=== PATIENT | male | born 1940 | race Asian ===

== ENCOUNTER 2022-07-07 16:28 | Emergency (ER) | payer OTHER, MEDICARE ==
--- NOTE | 2022-07-07 17:24 | ER ---
Nurse's Notes [facility] Name: Silvano South Age: 82 yrs Sex: Male : 1940 Arrival Date: 07/07/2022 Time: 16:32 Bed 23 [facility] MD: Diagnosis: Left hip strain Presentation: 07/07 16:52 Chief complaint: Patient states: L hip pain x 2 days. No known injury. Pt states he ss recently moved from [place] and is not established with PCP as of yet. Coronavirus screen: Client denies travel out of the [place] in the last 14 days. Ebola Screen: Patient denies exposure to infectious person. Patient denies travel to an Ebola-affected area in the 21 days before illness onset. Initial Sepsis Screen: Does the patient meet any 2 criteria? No. Patient's initial sepsis screen is negative. Does the patient have a suspected source of infection? No. Patient's initial sepsis screen is negative. Risk Assessment: Do you want to hurt yourself or someone else? Patient reports no desire to harm self or others. Onset of symptoms was July 05, 2022. 16:52 Method Of Arrival: Ambulatory ss 16:52 Acuity: DAMON 4 ss Historical: - Allergies: 16:53 No Known Allergies; ss - PMHx: 16:53 Hypertensive disorder; ss 17:21 Prostate CA; ss - Immunization history:: Client reports receiving the 2nd dose of the Covid vaccine. - Social history:: Smoking status: Patient denies any tobacco usage or history of. Screenin:33 Abuse screen: Denies threats or abuse. Denies injuries from another. Nutritional tp1 screening: No deficits noted. Tuberculosis screening: No symptoms or risk factors identified. Fall Risk Fall in past 12 months (25 points). No secondary diagnosis (0 pts). No IV (0 pts). Ambulatory Aid- None/Bed Rest/Nurse Assist (0 pts). Gait- Normal/Bed Rest/Wheelchair (0 pts) Mental Status- Oriented to own ability (0 pts). Total Blackmon Fall Scale indicates Low Risk Score (25-44 pts). Fall prevention measures have been instituted. Placed close to Nursing Station Family Present and informed to notify staff if they need to leave bedside As available Patient and Family Educated on Fall Prevention Program and strategies. Assessment: 17:00 General: Appears in no apparent distress. comfortable, Behavior is calm, cooperative. tp1 Pain: Complains of pain in left hip Pain does not radiate. Pain currently is 2 out of 10 on a pain scale. Quality of pain is described as aching, Pain began 2-3 days ago. Aggravated by repositioning. Neuro: Level of Consciousness is awake, alert, obeys commands, Oriented to person, place, time, situation. Cardiovascular: Patient's skin is warm and dry. Respiratory: Airway is patent Respiratory effort is even, unlabored. GI: Abdomen is flat, non-distended. : No signs and/or symptoms were reported regarding the genitourinary system. EENT: No signs and/or symptoms were reported regarding the EENT system. Derm: Skin is pink, warm \T\ dry. Musculoskeletal: limited range of motion in the left him. Vital Signs: 16:52 BP 160 / 95; Pulse 56; Resp 16; Temp 98.1(TE); Pulse Ox 100% on R/A; Weight 54.43 kg; ss Height 5 ft. 3 in. (160.02 cm); Pain 3/10; 17:33 BP 143 / 92; Pulse 52; Resp 16; Pulse Ox 97% on R/A; tp1 16:52 Body Mass Index 21.26 (54.43 kg, 160.02 cm) ED Course: 16:32 Patient arrived in ED. rg4 16:47 Darlene Wren MD is Attending Physician. sp3 16:53 Triage completed. ss 16:53 Arm band placed on right wrist. ss 17:00 Patient has correct armband on for positive identification. Bed in low position. Call tp1 light in reach. Adult w/ patient. 17:00 Pulse ox on. NIBP on. tp1 17:14 Hip Left 2 View XRAY In Process Unspecified. EDMS 17:31 Norma Roblero, DEE DEE is Primary Nurse. tp1 17:34 No provider procedures requiring assistance completed. Patient did not have IV access tp1 during this emergency room visit. Administered Medications: No medications were administered Medication: 17:34 VIS not applicable for this client. tp1 Outcome: 17:24 Discharge ordered by . sp3 17:34 Discharged to home ambulatory, with family. tp1 17:34 Condition: good 17:34 Discharge instructions given to patient, Instructed on discharge instructions, follow up and referral plans. Demonstrated understanding of instructions, follow-up care. 17:34 Patient left the ED. tp1 Signatures: Dispatcher [employer] EDDarlene Morales, RN RN ss Kandi Salazar rg4 Darlene Wren MD MD sp3 Norma Roblero RN RN tp1 Corrections: (The following items were deleted from the chart) 17:33 17:33 Fall Risk Fall in past 12 months (25 points). No secondary diagnosis (0 pts). No tp1 IV (0 pts). Ambulatory Aid- None/Bed Rest/Nurse Assist (0 pts). Gait- Normal/Bed Rest/Wheelchair (0 pts) Mental Status- Oriented to own ability (0 pts). Total Blackmon Fall Scale indicates Low Risk Score (25-44 pts). tp1
--- NOTE | 2022-07-07 17:24 | EDPHYS ---
Physician Documentation [facility] Name: Silvano South Age: 82 yrs Sex: Male : 1940 Arrival Date: 07/07/2022 Time: 16:32 Bed 23 Private MD: ED Physician Darlene Wren HPI: 07/07 17:19 This 82 yrs old Male presents to ER via Ambulatory with complaints of Hip Pain. sp3 17:19 82-year-old male with history of hypertension, recurrent prostate cancer and arthritis sp3 presents to the ED with chief complaint left hip pain x2 days. Patient has had 2 episodes of similar pain which have somewhat self resolved with time and a few doses of acetaminophen p.o. Patient is also on a baseline dose of Celebrex 100 mg daily for his arthritis. He is on no active cancer treatment and just surveillance for a slow rising PSA. He has recently moved to the area from [place] and he has 2 children in the area 1 of which is a physician at [employer]. She denies any headache, neck pain, URI symptoms, fever, chest pain, shortness of breath, back pain, abdominal pain, nausea, vomiting, diarrhea, changes in bowel movement, groin swelling, rash, difficulty urinating, urinary symptoms including frequency and dysuria, any other aspects of ROS at this time. There is no direct trauma and patient denies falling.. Historical: - Allergies: 16:53 No Known Allergies; ss - PMHx: 16:53 Hypertensive disorder; ss 17:21 Prostate CA; ss - Immunization history:: Client reports receiving the 2nd dose of the Covid vaccine. - Social history:: Smoking status: Patient denies any tobacco usage or history of. ROS: 17:21 Constitutional: Negative for fever, chills, and weight loss, Eyes: Negative for injury, sp3 pain, redness, and discharge, ENT: Negative for injury, pain, and discharge, Neck: Negative for injury, pain, and swelling, Cardiovascular: Negative for chest pain, palpitations, and edema, Respiratory: Negative for shortness of breath, cough, wheezing, and pleuritic chest pain, Abdomen/GI: Negative for abdominal pain, nausea, vomiting, diarrhea, and constipation, Back: Negative for injury and pain, Skin: Negative for injury, rash, and discoloration, Neuro: Negative for headache, weakness, numbness, tingling, and seizure, Psych: Negative for depression, anxiety, suicide ideation, homicidal ideation, and hallucinations, Allergy/Immunology: Negative for hives, rash, and allergies. 17:21 All other systems are negative. Exam: 17:21 Constitutional: This is a well developed, well nourished patient who is awake, alert, sp3 and in no acute distress. Head/Face: Normocephalic, atraumatic. Chest/axilla: Normal chest wall appearance and motion. Nontender with no deformity. No lesions are appreciated. Cardiovascular: Regular rate and rhythm with a normal S1 and S2. No gallops, murmurs, or rubs. Normal PMI, no JVD. No pulse deficits. Respiratory: Lungs have equal breath sounds bilaterally, clear to auscultation and percussion. No rales, rhonchi or wheezes noted. No increased work of breathing, no retractions or nasal flaring. Abdomen/GI: Soft, non-tender, with normal bowel sounds. No distension or tympany. No guarding or rebound. No evidence of tenderness throughout. Skin: Warm, dry with normal turgor. Normal color with no rashes, no lesions, and no evidence of cellulitis. MS/ Extremity: Pulses equal, no cyanosis. Neurovascular intact. Full, normal range of motion. Neuro: Awake and alert, GCS 15, oriented to person, place, time, and situation. Cranial nerves II-XII grossly intact. Motor strength 5/5 in all extremities. Sensory grossly intact. Cerebellar exam normal. Normal gait. Psych: Awake, alert, with orientation to person, place and time. Behavior, mood, and affect are within normal limits. 17:21 Musculoskeletal/extremity: Pt has full active and passive range of motion and no pain on direct axial load. Inguinal canal is free of mass and there is no hernia. There is no CVA tenderness.. Vital Signs: 16:52 BP 160 / 95; Pulse 56; Resp 16; Temp 98.1(TE); Pulse Ox 100% on R/A; Weight 54.43 kg; ss Height 5 ft. 3 in. (160.02 cm); Pain 3/10; 17:33 BP 143 / 92; Pulse 52; Resp 16; Pulse Ox 97% on R/A; tp1 16:52 Body Mass Index 21.26 (54.43 kg, 160.02 cm) MDM: 16:58 Patient medically screened. sp3 17:23 Data reviewed: vital signs, nurses notes. ED course: 82-year-old male with left hip sp3 pain. X-rays negative for any abnormality other than arthritis. Patient is already on an NSAID and is okay with p.o. Tylenol for continued medication treatment. He politely declined any further medication. We will discharge patient home at this time with follow-up with a new primary physician as soon as he establishes 1.. 07/07 16:51 Order name: Hip Left 2 View XRAY sp3 Administered Medications: No medications were administered Disposition Summary: 07/07/22 17:24 Discharge Ordered Location: Home sp3 Condition: Stable sp3 Diagnosis - Left hip strain sp3 Followup: sp3 - With: Private Physician - When: Upon discharge from the Emergency Department - Reason: Recheck today's complaints Discharge Instructions: - Discharge Summary Sheet sp3 - Hip Sprain sp3 Forms: - Medication Reconciliation Form sp3 - Thank You Letter sp3 - Antibiotic Education sp3 - Prescription Opioid Use sp3 Signatures: Dispatcher [employer] Darlene Regan RN RN Darlene Guzman MD MD sp3
--- NOTE | 2022-07-07 17:27 | RAD REPORT ---
EXAM DESCRIPTION: RAD - Hip Left 2 View - 07/07/2022 5:12 pm CLINICAL HISTORY: PAIN COMPARISON: No comparisons FINDINGS/IMPRESSION: No acute fracture. No malalignment. Moderate left acetabular degenerative pond es. Surgical clips overlie the left hemipelvis.
[2022-07-07 17:40] VITALS: TEMP 98.1
[2022-07-07 17:41] VITALS: BP 143/92; O2SAT 97
== END 2022-07-07 17:34 | disposition home or self-care (01) ==
LOC: ER 16:28
DX: S76.012A Strain of muscle, fascia and tendon of left hip, initial encounter (principal); I10 Essential (primary) hypertension; Z85.46 Personal history of malignant neoplasm of prostate
CPT/HCPCS: 99283